=== PATIENT | male | born 1980 | race Caucasian/White ===

== ENCOUNTER 2021-03-18 12:00 | Emergency (ER) | payer BC, SELFPAY ==
[2021-03-18 12:12] VITALS: BP 128/82; PULSE 88; RESP 20; TEMP 36.8; O2SAT 98; BMI 29.5
--- NOTE | 2021-03-18 13:06 | ED.PSYCH ---
HPI - Psych General Chief Complaint: ETOH/Substance Use Stated Complaint: withdrawals Time Seen by Provider: 03/18/21 12:53 Source: patient Mode of arrival: ambulatory Limitations: no limitations History of Present Illness HPI Narrative: 41-year-old male with a past medical history of opiate use disorder coming in with complaints of vomiting, diarrhea, abdominal cramping, body aches in the setting of opiate withdrawals. Last use of heroin 3 days ago. Was using 2 bundles a day. All substance use. Here seeking detox or initiation of Suboxone Related Data Previous Rx's Medication Instructions Recorded ondansetron 4 mg PO Q6H PRN #10 tab 03/18/21 promethazine 12.5 mg OK TID PRN #5 ea 03/18/21 Allergies Allergy/AdvReac Type Severity Reaction Status Date / Time Penicillins Allergy Hives Verified 03/18/21 12:14 Review of Systems Review of Systems: Yes all other systems are reviewed and are negative Constitutional: Constitutional: Reports no additional constitutional complaints, Reports body ache(s), Denies chills, Denies fever(s), Denies headache(s) and Denies weakness Eyes: Eyes: Reports no additional eye complaints and Denies change in vision ENT: Reports system reviewed and no additional complaints, except as documented, Denies dizziness, Denies headache(s), Denies nasal congestion, Denies nasal discharge and Denies neck pain Cardiovascular: Cardiovascular: Reports no additional cardiovascular complaints, Denies chest pain, Denies leg edema and Denies dyspnea Respiratory: Respiratory: Reports no additional respiratory complaints, Denies cough and Denies dyspnea Gastrointestinal: Gastrointestinal: Reports no additional gastrointestinal complaints, Reports abdominal pain, Reports diarrhea, Reports nausea and Reports vomiting Genitourinary: Genitourinary: Denies urinary incontinence Musculoskeletal: Musculoskeletal: Reports no additional musculoskeletal complaints, Denies back pain, Denies arthralgias, Denies joint swelling, Denies neck pain, Denies numbness and Denies tingling Integumentary/Breasts: Skin/Breast: Reports system reviewed and no additional complaints, except as docu and Denies rash Neurologic: Reports system reviewed and no additional complaints, except as documented, Denies Abnormal speech present, Denies dizziness, Denies headache(s), Denies numbness, Denies tingling and Denies weakness [facility] Past Medical History Attestation statement: The following information was validated with the patient. Source: old records reviewed and nursing notes reviewed Medical History No known health problems Social History Social History Alcohol intake: current Patient Tobacco Use Status: Current everyday Tobacco user Use of substances other than those prescribed or required for medical reasons: Yes Substance Use Type: Heroin Advance Directives: Yes Advance Directives Information Provided: No Advance Directives on File: No Physical Exam Vital Signs: Vital Signs: Last Vital Signs Temp 97.5 F 03/18/21 14:53 Pulse 82 03/18/21 14:53 Resp 18 03/18/21 14:53 BP 132/78 03/18/21 14:53 Pulse Ox 98 03/18/21 14:53 Body Mass Index 29.5 Const: General: cooperative and anxious Orientation/consciousness: patient oriented x3 Limitations: no limitations HENMT: Head: Yes normal to inspection Ears: hearing grossly normal bilaterally General nose exam: Normal external nose present Face and sinus: Yes normal facial exam Mouth: Normal oral and palatal mucosa present Throat: Yes posterior oropharynx normal Eyes: General: appearance normal, both eyes and all related structures Pupils: Equal, round and reactive pupils present Neck: Neck: Yes normal visual inspection Chest: Chest palpation & inspection: normal inspection of the chest Resp: Effort & Inspection: normal respiratory effort Auscultation: clear to auscultation bilaterally Cardio: Rate: regular rate Rhythm: regular rhythm Peripheral pulses: Peripheral pulses 2+ throughout GI: Inspection: Yes normal to inspection Palpation (GI): Soft to palpation and Tenderness to palpation present (GI) (mild diffuse) Auscultation: normal bowel sounds Back/Spine/Pelvis: Thoracic/Lumbar Spine: thoracic and lumbar spine normal to inspection Skin: General skin exam: no rashes or lesions noted Neuro: General: patient oriented x3, no focal motor deficits and normal sensation to monofilament Cranial nerves: Yes Equal, round and reactive pupils present Cognition (Neuro): normal cognition Speech: No Abnormal speech present Gait exam (Neuro): Normal gait present Motor exam (neuro): 5/5 motor strength present throughout Extrem: General: Yes normal to inspection, Yes no pedal edema and Yes no calf tenderness Course Course Course Narrative: 41 yo male here with opoiod withdrawals with last use 3 days ago. Vomiting in bed. NO focal abdominal pain. Will give IM phenergan. D/w with passenger coach driver. Requesting COVID screen, ethanol and ayon. -plan to dose with suboxone and re-assess for COWS 17. 1445-Cows now 7. Discussed with Brianne Quinones APRN. Re-dose with 4mg vs 8mg depending on patient. Will give dose 4mg/1 suboxone. 1530-Feeling improved. +nausea but overall improving. PO trial successful with dose of benadryl and water. Will f/u with clinic in morning. MDM - Psych Medical Records Attestation: I reviewed the patient's medical records. Lab Data Attestation: I reviewed the patient's lab results. Labs: Lab Results 03/18/21 03/18/21 Range/Units 13:11 13:35 Ethyl Alcohol < 10 mg/dL COVID-19 ([facility]) Negative (Negative) COVID-19 Clin Com See Note Discharge Plan Discharge Clinical Impression: Opioid use disorder Patient Disposition: Home, Self-Care Instructions: Opioid Use Disorder (ED) Additional Instructions: Follow-up with the clinic tomorrow You do not require dosing until tomorrow Prescriptions: New ondansetron 4 mg tablet,disintegrating 4 mg PO Q6H PRN (Reason: nausea and vomiting) Qty: 10 RF: 0 promethazine 12.5 mg suppository 12.5 mg OK TID PRN (Reason: nausea and vomiting) Qty: 5 RF: 0 Referrals: Physician,Unknown [Primary Care Provider] - 2 days Interventions: ED Discharge Assessment Last Done: 03/18/21 16:13 Discharge Date/Time: 03/18/21 16:19
[2021-03-18 13:36] LABS: COVID-19 Test Negative (Negative); IDNOW Serial# 9DD0AD1C
[2021-03-18] MEDS: Buprenorphine/Naloxone 8/2 mg FILM 1 FILM SUBLINGUAL (13:45)
--- NOTE | 2021-03-18 13:45 | MHC.RECOVSUP ---
? Reason for consult:Continuity of care o Current location: [facility] o Identified substance use concern: Heroin - Withdrawal - Seeking ATS (detox) - Support ? Intervention: o MAT started or to be started o Community resources provided o Harm reduction discussion ? Plan: o Referral to [facility] o Patient to follow up with [facility] after discharge ? Additional information: Patient seeking MAT. Patient to be started on Suboxone in the ED. F/U with [facility]
[2021-03-18 14:06] LABS: Ethanol < 10 mg/dL
[2021-03-18 14:53] VITALS: BP 132/78; PULSE 82; RESP 18; TEMP 36.4; O2SAT 98
--- NOTE | 2021-03-18 14:56 | MHC.RECOVSUP ---
Recovery Support note: Patient is a 41 year old [place] speaking male who presented to [facility] ED due to opiate withdrawal. This fiction and nonfiction prose writer met with patient to discuss his substance use and treatment options. Patient reports last using Thursday. Patient reports he is willing to go to detox or start Suboxone. This fiction and nonfiction prose writer discussed Suboxone with patient and explained that he would be able to start today and he will be able to continue taking it everyday for withdrawal management and to prevent cravings. Patient acknowledged and reports he is willing to move forward with initiating Suboxone. Patient received a dose while in the ED and reports improvement in symptoms. This fiction and nonfiction prose writer will provide patient with information on the [facility] and Suboxone clinics closer to his home. Discussed case with patient's RN and ED provider.
[2021-03-18] MEDS: Buprenorphine/Naloxone 4/1 mg FILM 1 FILM SUBLINGUAL (15:25)
[2021-03-18] MEDS: diphenhydrAMINE HCL 25 MG TABLET PO (15:59)
== END 2021-03-18 16:19 | disposition home or self-care (01) ==
PROVIDERS: Nurse Practitioner Family; Emergency Provider Emergency Medicine
DX: F11.23 Opioid dependence with withdrawal (principal); Z20.822 Contact with and (suspected) exposure to COVID-19
CPT/HCPCS: 36415; 82077; 87635; 96374; 99284; 99285; J2550; Q0163

== ENCOUNTER → 2021-03-19 10:04 | Outpatient (BNVA) | payer BC, SELFPAY | PROVIDERS: Visit Provider Internal Medicine ==